=== PATIENT | female | born 1990 ===

== ENCOUNTER 2021-06-10 07:00 | Inpatient (IN) | payer BC ==
[2021-06-10 11:28] VITALS: BMI 39.4
[2021-06-10] MEDS ORDERED: Ondansetron PF 4 MG/2 ML Vial IVP PRN ×2 (12:02→16:25)
[2021-06-10] MEDS ORDERED: Morphine 2 MG/ML VIAL SLOW IVP PRN ×2 (12:27→16:25)
[2021-06-10] MEDS: Lactated Ringer's 1,000 ML IV SCH ×2 (12:52→17:44)
[2021-06-10] MEDS ORDERED: Piperacillin/Tazobactam 3.375 GM in Sodium Chloride 0.9% 100 ML IVPB SCH ×2 (13:00→18:00)
[2021-06-10] MEDS ORDERED: Bupivacaine PF 0.5% 30 ML VIAL ONE (14:15)
[2021-06-10] MEDS ORDERED: EPINEPHrine 1 MG/ML AMP ONE (14:15)
[2021-06-10] MEDS ORDERED: Dexamethasone 4 mg/ml Vial ONE (14:21)
[2021-06-10] MEDS ORDERED: Fentanyl 100 MCG/2 ML VIAL ONE ×2 (14:21→15:14)
[2021-06-10] MEDS ORDERED: Ondansetron PF 4 MG/2 ML Vial ONE (14:21)
[2021-06-10] MEDS ORDERED: Ketorolac Tromethamine 30 MG/ML VIAL ONE (14:21)
[2021-06-10] MEDS ORDERED: Metoclopramide HCl 10 MG/2 ML VIAL ONE (14:21)
[2021-06-10] MEDS ORDERED: Succinylcholine 200 MG/10 ml SYRINGE FS ONE (14:21)
[2021-06-10] MEDS ORDERED: PROPOFOL 20 ML ONE (14:21)
[2021-06-10] MEDS ORDERED: Lidocaine 2% PF 5 ML VIAL ONE (14:22)
[2021-06-10] MEDS ORDERED: Rocuronium Bromide 10 MG/ML (10ML VIAL) ONE (14:22)
[2021-06-10] MEDS ORDERED: SUGAMMADEX SODIUM 500 MG/5 ML VIAL ONE (14:23)
[2021-06-10] MEDS ORDERED: Famotidine/PF 20 mg/2ml Vial ONE (14:23)
[2021-06-10] MEDS ORDERED: Glycopyrrolate 0.2 MG/ML 5 ML SYRINGE ONE (15:37)
[2021-06-10] MEDS ORDERED: Promethazine HCl 25 MG/ML VIAL IM PRN (16:25)
[2021-06-10] MEDS ORDERED: Dextrose 5% in Water 1,000 ML IV PRN (16:25)
[2021-06-10] MEDS ORDERED: HYDROcodone/Acetaminophen 10/325 mg Tablet PO PRN ×2 (16:25)
[2021-06-10] MEDS ORDERED: Acetaminophen 325 MG TAB PO PRN (16:25)
[2021-06-10] MEDS ORDERED: hydrALAZINE 20 MG/ML VIAL SLOW IVP PRN (16:25)
[2021-06-10] MEDS ORDERED: Morphine 4 MG/ML VIAL SLOW IVP PRN (16:25)
[2021-06-10] MEDS ORDERED: Dextrose 50% Abboject 50 ML SYRINGE SLOW IVP PRN (16:25)
[2021-06-10] MEDS: Piperacillin/Tazobactam 3.375 GM in Sodium Chloride 0.9% 100 ML IVPB SCH ×2 (16:43→18:18)
[2021-06-10] MEDS: Ketorolac Tromethamine 30 MG/ML VIAL IVP SCH ×2 (17:53→23:14)
[2021-06-10] MEDS: Enoxaparin Sodium 40 MG/0.4 ML SYRINGE SC SCH (21:39)
[2021-06-10] MEDS: Famotidine/PF 20 mg/2ml Vial SLOW IVP SCH (21:39)
[2021-06-11] MEDS: Piperacillin/Tazobactam 3.375 GM in Sodium Chloride 0.9% 100 ML IVPB SCH ×3 (01:28→17:57)
[2021-06-11] MEDS: Lactated Ringer's 1,000 ML IV SCH ×3 (03:26→16:07)
[2021-06-11] MEDS: Ketorolac Tromethamine 30 MG/ML VIAL IVP SCH ×3 (05:51→17:57)
[2021-06-11 09:48] LABS: #Monocytes 0.6 10x3/uL (0.0-1.1); #Neutrophils 10.3 10x3/uL (1.5-8.4); %Basophils 0.1 % (0.0-2.0); %Lymphocytes 7.2 % (18.0-47.0); %Neutrophils 87.3 % (40.0-75.0); Hemoglobin 9.7 g/dL (12.0-15.5); Mean Corpuscular HGB CONC 33.6 g/dL (32.0-36.0); Mean Corpuscular Hemoglobin 30.3 pg (27.0-33.0); Mean Corpuscular Volume 90.3 fl (81.6-98.3); Mean Platelet Volume 11.2 fl (7.4-10.4); Platelet Count 298 10x3/uL (150-450); RBC Distribution Width 15.1 % (11.5-14.5); White Blood Cell (WBC) Count 11.7 10x3/uL (3.5-10.5)
[2021-06-11] MEDS: Famotidine/PF 20 mg/2ml Vial SLOW IVP SCH ×2 (10:10→20:28)
[2021-06-11] MEDS: Enoxaparin Sodium 40 MG/0.4 ML SYRINGE SC SCH (20:28)
[2021-06-12] MEDS: Piperacillin/Tazobactam 3.375 GM in Sodium Chloride 0.9% 100 ML IVPB SCH (00:10)
[2021-06-12] MEDS: Ketorolac Tromethamine 30 MG/ML VIAL IVP SCH ×2 (00:10→06:17)
[2021-06-12 06:26] LABS: Hemoglobin 8.9 g/dL (12.0-15.5); Mean Corpuscular HGB CONC 33.5 g/dL (32.0-36.0); Mean Corpuscular Hemoglobin 30.6 pg (27.0-33.0); Mean Corpuscular Volume 91.4 fl (81.6-98.3); Mean Platelet Volume 11.6 fl (7.4-10.4); Platelet Count 280 10x3/uL (150-450); RBC Distribution Width 15.4 % (11.5-14.5); Red Blood Cell (RBC) Count 2.91 10x6/uL (3.90-5.03)
[2021-06-12 07:55] VITALS: BP 112/62; TEMP 97.8
[2021-06-12 08:14] LABS: MDiff Complete? YES
[2021-06-12 08:17] LABS: Eosinophils 3 % (0-10); Lymphocytes 36 % (21-51); Monocytes 3 % (0-10); Neutrophil 57 % (42-75); Reactive Lymphocytes 1 % (0-10)
[2021-06-12 08:18] LABS: Platelet Morphology Comment Appears Adequate
[2021-06-12 08:20] LABS: RBC Morphology Normal
== END 2021-06-12 10:46 | disposition home or self-care (01) | DRG 331 ==
LOC: OBSVTOIN 07:00 → CSHPED 07:00
PROVIDERS: ADMIT Surgery; ATTEND Surgery
PROC: 0DTJ0ZZ Resection of Appendix, Open Approach (ICD-10-PCS; principal; 2021-06-10)
PROC: 0WJG4ZZ Inspection of Peritoneal Cavity, Percutaneous Endoscopic Approach (ICD-10-PCS; 2021-06-10)
PROC: 0DBH0ZZ Excision of Cecum, Open Approach (ICD-10-PCS; 2021-06-10)
DX: K35.33 Acute appendicitis with perforation, localized peritonitis, and gangrene, with abscess (principal); Z20.822 Contact with and (suspected) exposure to COVID-19; F41.9 Anxiety disorder, unspecified; F31.9 Bipolar disorder, unspecified; Z98.51 Tubal ligation status; F17.210 Nicotine dependence, cigarettes, uncomplicated
CPT/HCPCS: 36415; 85025; 88304; J0171; J1100; J1650; J1885; J2001; J2405; J2543; J2704; J2765; J3010; J3490; J7120; S0020; S0028